=== PATIENT | female | born 1960 | race Caucasian/White ===

== ENCOUNTER 2022-04-12 14:03 | Outpatient (RCR) | payer BC, SELFPAY | END 2022-10-09 23:59 | disposition home or self-care (01) | LOC: CCIC 14:03 | PROVIDERS: Visit Provider Nurse Practitioner Family | DX: C50.911 Malignant neoplasm of unspecified site of right female breast (principal); Z17.0 Estrogen receptor positive status [ER+]; Z79.811 Long term (current) use of aromatase inhibitors; M85.859 Other specified disorders of bone density and structure, unspecified thigh | CPT/HCPCS: 99212; 99214 ==